=== PATIENT | male | born 1975 | race Caucasian/White ===

== ENCOUNTER → 2022-05-28 07:35 | Outpatient (CLI) | payer OTHER, SELFPAY ==
--- NOTE | 2022-05-28 | DI.ECHO.S_ITS ---
[facility]---------+ [facility] +---------+ : : [address] [place] : : : : [id number] : : : : Phone: [phone]---------+ Echocardiogram Report + + :Name: LIZ BAUTISTA Study Date: 05/28/2022 Height: 71 in : :[facility] ReadingLocation: Weight: 208 lb : : Gender: Male BSA: 2.1 m2 : :: 1975 Age: 46 yrs BP: 129/92 mmHg: :Reason For Study: Abnormal echoencephalogram : :Ordering Physician: RAFIA, : :TIGRE Performed By: Tomas Richmond : :Referring: TIGRE MORATAYA : + + Interpretation Summary The left ventricle is normal in size and wall thickness. Left ventricular systolic function is normal. The ejection fraction is estimated to be 55-60%. There are no focal wall motion abnormalities. Diastolic parameters suggest a relaxation abnormality of the left ventricle, consistent with probable normal filling pressures. The right ventricle is normal in size and function. Pulmonary artery pressures cannot be estimated because of the lack of a measurable TR jet velocity. Both atria are normal in size. There is no significant valvular heart disease. The aortic root is normal size. Procedure: A two-dimensional transthoracic echocardiogram with color flow and Doppler was performed. The study quality was technically adequate. Comparison is made with the echocardiogram of 10/09/2020. Left Ventricle: The left ventricle is normal in size and wall thickness. Left ventricular systolic function is normal. The ejection fraction is estimated to be 55-60%. There are no focal wall motion abnormalities. Diastolic parameters suggest a relaxation abnormality of the left ventricle, consistent with probable normal filling pressures. Right Ventricle: The right ventricle is normal in size and function. Atria: Both atria are normal in size. The interatrial septum grossly appears intact with no obvious evidence for an atrial septal defect. Mitral Valve: The mitral valve is normal in structure and function. There is no mitral regurgitation noted. Aortic Valve: The aortic valve is normal in structure and function. No aortic regurgitation is present. Tricuspid Valve: The tricuspid valve is normal in structure and function. There is trace tricuspid regurgitation. Pulmonary artery pressures cannot be estimated because of the lack of a measurable TR jet velocity. Pulmonic Valve: The pulmonic valve is normal in structure and function. There is mild pulmonic regurgitation. There is no significant valvular heart disease. Great Vessels: The aortic root is normal size. The dimensions of the ascending aorta are normal. The IVC is of normal diameter and collapses greater than 50% with a sniff. This suggests a low right atrial pressure of 3 mm Hg. Pericardium/ Pleura There is no pericardial effusion. There is no pleural effusion. MMode/2D Measurements & Calculations LVIDd: 5.3 cm LVOT diam: 2.4 cm LVIDs: 3.5 cm Ao root diam: 3.6 cm FS: 34.0 % asc Aorta Diam: 3.4 cm IVSd: 0.90 cm LVPWd: 0.90 cm LV tim. diameter/BSA (cm/m^2): 2.5 LV sys. diameter/BSA (cm/m^2): 1.6 LA dimension: 3.6 cm RA long axis: 5.3 cm LA A2 area: 13.4 cm2 LA A4 area: 14.3 cm2 LA length (vol): 4.6 cm LA vol: 35.5 ml LA vol index: 16.6 ml/m2 TAPSE_phl: 2.2 cm Doppler Measurements & Calculations Ao V2 max: 103.0 cm/sec LVOT Max Albert: 101.0 cm/sec Ao V2 mean: 76.5 cm/sec LV V1 max P.1 mmHg Ao max P.0 mmHg LV V1 VTI: 21.4 cm Ao mean P.0 mmHg TAMAR(I,D): 4.6 cm2 Ao V2 VTI: 21.0 cm TAMAR(V,D): 4.4 cm2 sev ratio: 1.0 TAMAR indexed to BSA (cm^2/m^2): 2.1 MV E max albert: 63.8 cm/sec SV(LVOT): 96.8 ml MV A max albert: 69.4 cm/sec MV E/A: 0.92 Med Peak E' Albert: 6.9 cm/sec E/E' med: 9.3 Lat Peak E' Albert: 13.0 cm/sec E/E' lat: 4.9 E/e' average: 7.1 MV dec time: 0.23 sec AV VR_phl: 0.98 MV P1/2t-pr_phl: 68.0 msec TAMAR(VTI)/BSA_phl: 2.1 Reading Physician:06:59 PM
== END ==
PROVIDERS: Referring Provider Orthopaedic Surgery; Visit Provider Orthopaedic Surgery
DX: R90.81 Abnormal echoencephalogram (principal)
CPT/HCPCS: 93306